=== PATIENT | female | born 1980 | race Caucasian/White ===

== ENCOUNTER → 2017-03-29 | Outpatient (CLI) | payer OTHER ==
[~2017-03-29] MED LIST: PRENTAB26 PO
== END | disposition home or self-care (01) ==
LOC: C.PAPS 15:04
PROVIDERS: ATTEND Obstetrics & Gynecology
DX: Z12.4 Encounter for screening for malignant neoplasm of cervix (principal)

== ENCOUNTER 2023-03-27 12:23 | Observation (INO) ==
--- OUTSIDE RECORDS SUMMARY | 2023-03-27 12:29 | External Medical Summary | Continuity of Care Document ---
Author Name Unknown Organization [address] Address [address] [place] [phone] Care Team Providers Care Grizzlyman Name Role Phone Lito Colon Primary Care Physician [phone] Encounter [facility] [id number] Date(s): 11/12/22 - 11/12/[address] [facility] [address] [facility], [address] [place] [address] [phone] Encounter Diagnosis Ventral hernia(Discharge Diagnosis) - 11/12/22 GERD (gastroesophageal reflux disease)(Discharge Diagnosis) - 11/12/22 Discharge Disposition: Home or Self Care Attending Physician: MD Colon Jesse Referring Physician: MD Colon Jesse Allergies, Adverse Reactions, Alerts Substance Reaction Severity Status PCN (penicillin) fever itchy joint swelling Active Medications predniSONE 20 mg oral tablet Start: 11/12/22 14:38:00 EDT, 2 tab, PO, Daily, Disp# 10 tab, Pharmacy: [id number] Start Date: 11/12/22 Stop Date: 11/17/22 Status: Ordered Protonix 40 mg oral delayed release tablet Start: 11/12/22 14:50:00 EDT, 1 tab, PO, Daily, Disp# 30 tab, Pharmacy: [id number] Start Date: 11/12/22 Status: Ordered Mental Status 11/12/22 Barriers to Learning one year None evide nt Mandatory Health Literacy Documentation Yes Health Literacy Communication Barriers N ever Primary Language [place] Problem List Condition Confirmation Course Effective Dates Status Health St atus Informant GERD (gastroesophageal reflux disease) Confirmed Active Ventral hernia Confirmed Active Tobacco user Confirmed Active Diagnosis Diagnosis Type Effective Dates Health Status Cl inical Service Informant Ventral hernia Discharge Diagnosis 11/12/22 GERD (gastroesophagea l reflux disease) Discharge Diagnosis 11/12/22 Vital Signs Most recent to oldest [Reference Range]: 1 Patient Weight 83.5 kg (11/12/22 1:57 PM) Heart Rate 59 bpm (11/12/22 1:57 PM) Respiratory Rate 18 br/min (11/12/22 1:57 PM) Blood Pressure 122/85mmHg (11/12/22 1:57 PM) Social History Social History Type Response Smoking Status Current some day hea vy smoker Sex Female Patient Care team information Care Team Personnel Name: MD Colon Jesse Position: Physician Member Role: Primary Care Provider Address: Address: [address] [facility] [address] [place] [address], [place] [address]
[2023-03-27] MEDS ORDERED: ONDANSETRON INJ 2 MG/ML 2 ML VIAL IV PRN ×2 (12:32→15:59)
[2023-03-27] MEDS ORDERED: ONDANSETRON INJ 2 MG/ML 2 ML VIAL IV STA (12:33)
[2023-03-27 12:53] LABS: Basophils # (auto) 0.07 K/uL (0.00-0.20); Basophils % (auto) 1.1 %; Eosinophils % (auto) 4.8 %; Hematocrit (blood only) 42.4 % (37.0-47.0); Hemoglobin 14.1 g/dl (12.0-16.0); Immature Granulocytes # (auto) 0.02 K/uL (0.01-0.20); Immature Granulocytes % (auto) 0.3 %; Lymphocytes % (auto) 38.5 %; Mean Corpuscular Hgb Conc 33.3 g/dL (32.0-36.0); Mean Corpuscular Volume 87.2 fL (80.0-100.0); Mean Platelet Volume 9.3 fL (9.4-12.4); Monocytes % (auto) 11.2 %; Neutrophils # (auto) 2.74 K/uL (1.40-6.50); Neutrophils % (auto) 44.1 %; Platelet Count 306 K/uL (130-400); RDW Coefficient of Variation 13.5 % (11.5-14.5); RDW Standard Deviation 43.4 fL (36.4-46.3); Red Blood Count 4.86 M/uL (4.20-5.40); White Blood Count 6.23 K/ul (4.8-10.8)
[2023-03-27] MEDS ORDERED: MoRPHine SULFATE 4 MG/ML 1 ML CARP\\VIAL IV STA ×2 (13:03→13:48)
[2023-03-27] MEDS ORDERED: SODIUM CHLORIDE 0.9% 1,000 ML IV ONE (13:03)
--- NOTE | 2023-03-27 13:08 | Emergency Department Note ---
History of Present Illness General Chief complaint: Abdominal Pain Stated complaint: HERNIA Time Seen by Provider: 03/27/23 12:52 History of Present Illness Maximum Pain Intensity: 8 42-year-old female who presents to the emergency department for evaluation of abdominal pain and vomiting. Patient reports history of a ventral hernia and states for the last 2 weeks she has been having progressive pain in the epigastric region. She states her pain got significantly worse today and developed vomiting prompting evaluation. She notes previous episodes similar to this in the past but this feels worse. She denies fever/chills, chest pain, shortness of breath, diarrhea/constipation, urinary symptoms. No hematochezia, melena. She states that she is following up with the surgeon in [place] on April 12 to discuss treatment options. She has not taken anything for her symptoms. Notes an allergy to penicillins. Home Medications Medication Instructions Recorded Confirmed Type pantoprazole 40 mg tablet,delayed 40 mg PO DAILY 03/27/23 03/27/23 History release Allergies Allergy/AdvReac Type Severity Reaction Status Date / Time meperidine Allergy Unknown Verified 02/04/10 08:13 Penicillins Allergy Unknown Verified 01/07/22 09:16 Past Med/Surg History Medical History GERD (gastroesophageal reflux disease) Social History Smoking Status: Never smoker Preferred Language: Belizean Feels Safe at Home: Yes Physical Exam Vital Signs Vital Signs - 24 hr 03/27/23 12:29 03/27/23 13:09 03/27/23 13:21 Temperature 36.8 C Temperature Source Temporal Artery Scan Pulse Rate 68 63 Pulse Rate [Apical] 71 Pulse Rhythm [Apical] Regular Pulse Strength [Apical] Normal Respiratory Rate 18 18 Respiratory Effort / Characteristics Non-Labored Spontaneous Non-Labored Spontaneous Respiratory Depth Normal Normal Blood Pressure 142/85 H Blood Pressure [Left Arm] 130/76 Blood Pressure Mean 104 Blood Pressure Mean [Left Arm] 94 Blood Pressure Position Sitting Pulse Oximetry 100 100 Oxygen Delivery Method Room Air Room Air Sepsis Recent Fever Within 48 Hours No Sepsis New/Unexplained Change in Mental Status No Sepsis Action Taken by Nursing No Action Required 03/27/23 13:59 03/27/23 16:08 Temperature 36.6 C Temperature Source Axillary Pulse Rate Pulse Rate [Apical] 61 58 L Pulse Rhythm [Apical] Pulse Strength [Apical] Respiratory Rate 24 16 Respiratory Effort / Characteristics Respiratory Depth Blood Pressure Blood Pressure [Left Arm] 130/76 119/83 Blood Pressure Mean Blood Pressure Mean [Left Arm] 94 95 Blood Pressure Position Pulse Oximetry 100 100 Oxygen Delivery Method Room Air Room Air Sepsis Recent Fever Within 48 Hours Sepsis New/Unexplained Change in Mental Status Sepsis Action Taken by Nursing Constitutional: alert and oriented x3. Uncomfortable appearing but nontoxic HEENT: normocephalic, atraumatic. normal conjunctiva.PERRLA. EOM's grossly intact. TMs pearly langford without effusion. Pharynx pink without exudate. Tonsils nonenlarged. Mucus membranes moist Neck: neck is supple, nontender. Respiratory: lungs are clear to auscultation without wheezes, rhonchi, or rales bilaterally. equal chest rise. normal respiratory effort, no accessory muscle use. Cardiovascular: normal heart sounds without murmur. regular rate and rhythm. GI: abdomen is soft. Mass in epigastric region, tender to palpation. Abdomen nondistended. No rebound tenderness or guarding. No CVA tenderness Psych:appropriate mood and affect. Course Administered Medications Discontinued Medications Hydromorphone HCl (Hydromorphone Inj 0.5 Mg/0.5 Ml Syr) 0.5 mg IV NOW STA Stop: 03/27/23 14:40 Last Admin: 03/27/23 14:46 Dose: 0.5 mg Documented By: BILL Sodium Chloride (Nss) 1,000 mls @ 999 mls/hr IV .Q1H1M ONE Stop: 03/27/23 14:03 Last Infusion: 03/27/23 14:00 Dose: Infused Documented By: Admin: 03/27/23 13:08 Dose: 999 mls/hr Documented By: BILL Ioversol (Optiray 320 500ml) 87 ml IV ONCE ONE Stop: 03/27/23 14:13 Last Admin: 03/27/23 14:12 Dose: 87 ml Documented By: DIPTI Ketorolac Tromethamine (Ketorolac Tromethamine 15 Mg/Ml Vial) 15 mg IV NOW STA Stop: 03/27/23 13:50 Last Admin: 03/27/23 13:52 Dose: 15 mg Documented By: MMG Morphine Sulfate (Morphine Sulfate 4 Mg/Ml 1 Ml Carp\Vial) 4 mg IV NOW STA Stop: 03/27/23 13:04 Last Admin: 03/27/23 13:08 Dose: 4 mg Documented By: BILL Morphine Sulfate (Morphine Sulfate 4 Mg/Ml 1 Ml Carp\Vial) 4 mg IV NOW STA Stop: 03/27/23 13:49 Last Admin: 03/27/23 13:53 Dose: 4 mg Documented By: MMG Ondansetron HCl (Ondansetron Inj 2 Mg/Ml 2 Ml Vial) 4 mg IV NOW STA Stop: 03/27/23 12:34 Last Admin: 03/27/23 12:36 Dose: 4 mg Documented By: IRENA Medical Decision Making Differential Diagnosis Appendicitis, ovarian cyst, ovarian torsion, ectopic , TOA, PID, infections, diverticulitis, UTI, obstruction, mesenteric ischemia, aortic pathology, inflammatory bowel disease, renal colic, PUD, pancreatitis, biliary pathology, hernia, volvulus, constipation, as well as other pathologies. Laboratory Data Attestation: I reviewed the patient's lab results. 03/27/23 12:35 03/27/23 12:35 Lab Results 03/27/23 03/27/23 03/27/23 Range/Units 12:35 13:00 14:46 WBC 6.23 (4.8-10.8) K/ul RBC 4.86 (4.20-5.40) M/uL Hgb 14.1 (12.0-16.0) g/dl Hct 42.4 (37.0-47.0) % MCV 87.2 (80.0-100.0) fL MCH 29.0 (25.0-34.0) pg MCHC 33.3 (32.0-36.0) g/dL RDW Std Deviation 43.4 (36.4-46.3) fL RDW Coeff of Melony 13.5 (11.5-14.5) % Plt Count 306 (130-400) K/uL MPV 9.3 L (9.4-12.4) fL Immature Gran % (Auto) 0.3 % Neut % (Auto) 44.1 % Lymph % (Auto) 38.5 % [place] % (Auto) 11.2 % Eos % (Auto) 4.8 % Baso % (Auto) 1.1 % Neut # (Auto) 2.74 (1.40-6.50) K/uL Lymph # (Auto) 2.40 (1.20-3.40) K/uL [place] # (Auto) 0.70 H (0.11-0.59) K/uL Eos # (Auto) 0.30 (0.00-0.50) K/uL Baso # (Auto) 0.07 (0.00-0.20) K/uL Immature Gran # (Auto) 0.02 (0.01-0.20) K/uL Sodium 137 (136-145) mmol/L Potassium 3.3 L (3.5-5.1) mmol/L Chloride 105 (98-107) mmol/L Carbon Dioxide 21 (21-32) mmol/L Anion Gap 11 (3-11) BUN 14 (6-23) mg/dl Creatinine 0.95 (0.6-1.2) mg/dl Est Cr Clr Drug Dosing 77.7 ml/min Est GFR ( Amer) 86.8 ml/min Est GFR (Non-Af Amer) 74.9 ml/min BUN/Creatinine Ratio 14.7 (10-20) Glucose 117 H (70-99(Fasting)) mg/dl Lactate 2.3 H* 1.7 (0.4-2.0) mmol/L Calcium 9.5 (8.6-10.3) mg/dl Total Bilirubin 0.6 (0.2-1.0) mg/dl AST 15 (13-39) U/L ALT 9 (7-52) U/L Alkaline Phosphatase 63 (34-104) U/L Total Protein 7.6 (6.0-8.3) gm/dl Albumin 4.5 (3.4-5.0) gm/dl Globulin 3.1 (2.5-4.0) gm/dl Albumin/Globulin Ratio 1.5 (0.9-2) Lipase 20 (11-82) U/L HCG, Qual Negative (Negative) Urine Color Yellow Urine Appearance Clear (Clear) Urine pH 6.5 (4.5-7.5) Ur Specific [place] 1.020 (1.000-1.030) Urine Protein Negative (Negative) Urine Glucose (UA) Negative (Negative) Urine Ketones Trace H (Negative) Urine Blood Negative (Negative) Urine Nitrite Negative (Negative) Urine Bilirubin Negative (Negative) Urine Urobilinogen Negative (Negative) Ur Leukocyte Esterase Negative (Negative) Imaging Data Radiologist's Impression: Abdomen/Pelvis CT 03/27/23 12:53 CT abd pelvis IV con only CLINICAL HISTORY: abd hernia, pain/vomiting TECHNIQUE: Helical axial images of the abdomen and pelvis were obtained and displayed. Automated dose lowering techniques and/or adjustment according to patient size were utilized for this exam. This exam was performed with intravenous contrast. CT DOSE: 1047.91 mGy.cm COMPARISON: Comparison is made to CT abdomen pelvis 10/26/2022 FINDINGS: Lower chest: No acute abnormality. Liver: Unremarkable. No focal lesions are seen. Gallbladder and biliary tree: No calcified gallstones. Normal caliber wall. No intra- or extrahepatic biliary ductal dilation. Pancreas: Unremarkable, no focal lesions. Spleen: Unremarkable. Adrenals: Unremarkable. Kidneys and ureters: Unremarkable. Bladder: Unremarkable. Reproductive organs: Unremarkable. Bowel: The appendix is unremarkable. There is a loop of small bowel contained within a hernia with mild wall thickening, enhancement, and surrounding free fluid. No pneumatosis is seen. Lymph nodes Retroperitoneal: Unremarkable. Pelvic: Unremarkable. Mesenteric: Unremarkable. Peritoneum: Trace free fluid in the pelvis is likely physiologic. Vessels: Unremarkable. Abdominal wall: A supraumbilical hernia is seen containing a loop of bowel which appears mildly distended and with wall thickening. Bones: Degenerative changes in the visualized spine. IMPRESSION: Supraumbilical hernia is seen. In the interval, the contained loop of bowel appears mildly distended, with a thickened enhancing wall and small surrounding fluid. Findings are concerning for incarcerated hernia with early ischemic changes. No CT evidence of bowel infarct. ACT 112: Negative or not required by law. Electronically signed by: Taye Moreno M.D. 03/27/2023 3:10 PM MDM Narrative 42-year-old female with past medical history significant for ventral hernia who presents to the emergency department for evaluation of epigastric abdominal pain and vomiting. Reviewed pertinent visits and past medical history performed. Vital signs in ED stable, afebrile. Patient was seen and evaluated as above. IV access was established and labs and imaging were obtained. CBC without leukocytosis or acute anemia. CMP without significant electrolyte abnormalities. Potassium 3.3. Renal function within normal limits. LFTs and lipase unremarkable. test negative. Lactate initially 2.3. 2-hour repeat lactate 1.7 following hydration. Urinalysis without evidence of infection or blood. On exam, patient is uncomfortable appearing but nontoxic. She is significantly tender in the epigastric region with palpable hernia. No surgical abdomen. Patient was medicated with IV morphine, Zofran and 1 L of fluids. She was reassessed on multiple occasions throughout ED stay. She did require multiple rounds of pain medication including an additional 4 mg of morphine and Toradol as well as 0.5 mg IV Dilaudid. Her pain did improve with this. CT of the abdomen/pelvis was performed and demonstrates supraumbilical hernia with mildly distended containing loop of bowel with thickened enhancing wall and surrounding fluid. Findings concerning for an incarcerated hernia with early ischemic changes. Case was discussed with on-call general surgery, Dr. Velez, who reviewed patient's workup and imaging and recommended emergent surgical intervention. These recommendations were relayed to the patient who verbalized understanding. Please see Dr. Velez's note for details regarding surgical and postoperative plan. Patient ric to OR with general surgery in stable condition. Case was discussed with ED attending, Dr. Zhang who agrees with workup and treatment plan Impression & Plan Incarcerated ventral hernia Discharge Plan Visit Data Chief Complaint: Abdominal Pain Stated Complaint: HERNIA ED Provider: Km Zhang ED Midlevel Provider: Elli Love Discharge Problem: Incarcerated ventral hernia Patient Disposition: Being Evaluated by Surgeon Discharge Instructions Interventions: ED Discharge Assessment Last Done: 03/27/23 16:20
[2023-03-27 13:24] LABS: Appearance Urine Clear (Clear); Bilirubin Urine Negative (Negative); Blood Urine Negative (Negative); Color Urine Yellow; Glucose Urine UA Negative (Negative); Ketones Urine Trace (Negative); Leukocyte Esterase Urine Negative (Negative); Nitrite Urine Negative (Negative); Protein Urine Negative (Negative); Urobilinogen Urine Negative (Negative); pH Urine 6.5 (4.5-7.5)
[2023-03-27 13:40] LABS: Albumin Level 4.5 gm/dl (3.4-5.0); Bilirubin,Total 0.6 mg/dl (0.2-1.0); Calcium 9.5 mg/dl (8.6-10.3); Potassium 3.3 mmol/L (3.5-5.1)
[2023-03-27 13:44] LABS: Pregnancy Test, Serum Negative (Negative)
[2023-03-27 13:46] LABS: Albumin Globulin Ratio 1.5 (0.9-2); BUN Creatinine Ratio 14.7 (10-20); Creatinine Clr Calc Pharmacy 77.7 ml/min; Est GFR (African American) 86.8 ml/min; Est GFR (Non-African American) 74.9 ml/min; Globulin 3.1 gm/dl (2.5-4.0); Total Protein 7.6 gm/dl (6.0-8.3)
[2023-03-27] MEDS ORDERED: KETOROLAC TROMETHAMINE 15 MG/ML VIAL IV STA (13:49)
[2023-03-27] MEDS ORDERED: OPTIRAY 320 500ml IV ONE (14:12)
[2023-03-27] MEDS ORDERED: HYDROmorphone INJ 0.5 MG/0.5 ML SYR IV STA (14:39)
--- NOTE | 2023-03-27 15:12 | CT Scan Report ---
CT abd pelvis IV con only CLINICAL HISTORY: abd hernia, pain/vomiting TECHNIQUE: Helical axial images of the abdomen and pelvis were obtained and displayed. Automated dose lowering techniques and/or adjustment according to patient size were utilized for this exam. This e xam was performed with intravenous contrast. CT DOSE: 1047.91 mGy.cm COMPARISON: Comparison is made to CT abdomen pelvis 10/26/2022 FINDINGS: Lower chest: No acute abnormality. Liver: Unremarkable. No focal lesions are seen. Gallbladder and biliary tree: No calcified gallstones. Normal caliber wall. No intra- or extrahepatic biliary ductal dilation. Pancreas: Unremarkable, no focal lesions. Spleen: Unremarkable. Adrenals: Unremarkable. Kidneys and ureters: Unremarkable. Bladder: Unremarkable. Reproductive organs: Unremarkable. Bowel: The appendix is unremarkable. There is a loop of small bowel contained within a hernia with mi ld wall thickening, enhancement, and surrounding free fluid. No pneumatosis is seen. Lymph nodes Retroperitoneal: Unremarkable. Pelvic: Unremarkable. Mesenteric: Unremarkable. Peritoneum: Trace free fluid in the pelvis is likely physiologic. Vessels: Unremarkable. Abdominal wall: A supraumbilical hernia is seen containing a loop of bowel which appears mildly diste nded and with wall thickening. Bones: Degenerative changes in the visualized spine. IMPRESSION: Supraumbilical hernia is seen. In the interval, the contained loop of bowel appears mildly distended, with a thickened enhancing wall and small surrounding fluid. Findings are concerning for incarcerate d hernia with early ischemic changes. No CT evidence of bowel infarct. ACT 112: Negative or not required by law. Electronically signed by: Taye Moreno M.D. 03/27/2023 3:10 PM
[2023-03-27] MEDS ORDERED: ACETAMINOPHEN 1000 MG/100 ML IV IV ONE (15:56)
[2023-03-27] MEDS ORDERED: ATROPINE SULFATE 0.1 MG/ML 10ML SYR IV PRN (15:59)
[2023-03-27] MEDS ORDERED: PROMETHAZINE HCL 6.25 MG in SODIUM CHLORIDE 0.9% 50 ML IV PRN (15:59)
[2023-03-27] MEDS ORDERED: fentaNYL citrate PF 100 MCG/2 ML VIAL IV PRN (15:59)
[2023-03-27] MEDS ORDERED: ePHEDrine sulfate 50 MG/ML AMP IV PRN (15:59)
[2023-03-27] MEDS ORDERED: MIDAZOLAM HCL 1 MG/ML 2ML VIAL ONE (16:04)
[2023-03-27] MEDS ORDERED: SUCCINYLCHOLINE CHLORIDE 20 MG/ML 10 ML VIAL IV ONE (16:04)
[2023-03-27] MEDS ORDERED: ROCURONIUM BROMIDE 10 MG/ML 5 ML VIAL IV ONE (16:04)
[2023-03-27] MEDS ORDERED: ONDANSETRON INJ 2 MG/ML 2 ML VIAL ONE ×2 (16:04→18:30)
[2023-03-27] MEDS ORDERED: LIDOCAINE 2% 2 ML VIAL/AMP(20MG/ML) INFIL ONE (16:04)
[2023-03-27] MEDS ORDERED: PROPOFOL IV EMULSION 10 MG/ML 20 ML VIAL IV ONE (16:04)
[2023-03-27] MEDS ORDERED: fentaNYL citrate PF 100 MCG/2 ML VIAL ONE (16:04)
[2023-03-27] MEDS ORDERED: SUGAMMADEX SODIUM 200 MG/2 ML VIAL IV ONE (16:04)
[2023-03-27] MEDS ORDERED: DEXAMETHASONE SOD INJ 4 MG/ML VIAL ONE (16:04)
--- NOTE | 2023-03-27 16:19 | Anesthesiology Consultation ---
Date of Service March 27, 2023 Assessment & Plan Chart Review Chart Review: Acceptable Risk for Surgery and Patient NOT seen in Pre Admission Testing Consults Requested none ASA ASA2E Proposed Anesthesia Anesthesia Type: General Risk / Benefits Reviewed With: PT / POA / Parent / Guardian, Accepts Plan and Informed Consent Obtained History Surgery Operation Date: 03/27/23 16:30 Proposed Procedures p Ventral Hernia Repair - Tolu Velez, Height/Weight Height: 5 ft 2 in Weight: 81.2 kg Allergies Allergy/AdvReac Type Severity Reaction Status Date / Time meperidine Allergy Unknown Verified 02/04/10 08:13 Penicillins Allergy Unknown Verified 01/07/22 09:16 Medications Home Medications Medication Instructions Recorded Confirmed Last Taken pantoprazole 40 mg tablet,delayed 40 mg PO DAILY 03/27/23 03/27/23 03/27/23 release NPO Date Last Intake of Fluids: 03/27/23 Time Last Intake of Fluids: 10:00 Date Last Intake of Solids: 03/26/23 Time Last Intake of Solids: 20:00 Past Medical History Medical History GERD (gastroesophageal reflux disease) Exercise / Class Metabolic Activity II 4-5 Yardwork/Stairs/Walk up hill Past Anesthesia History No Hx of Anesthesia Complications and No Family Hx of Anesthesia Complications History of PONV No Hx of PONV and No Hx of Motion Sickness Social History Smoking Status: Never smoker Review of Systems ROS Unobtainable: All systems reviewed & are unremarkable except as noted in HPI & below Physical Exam Vital Signs Last Vital Signs Temp 36.6 C 03/27/23 16:08 Pulse 58 L 03/27/23 16:08 Resp 16 03/27/23 16:08 BP 119/83 03/27/23 16:08 Pulse Ox 100 03/27/23 16:08 O2 Del Method Room Air 03/27/23 16:08 ENMT Mouth: no TMJ abnormality Thyromental Distance: > or= 3.5 Finger Breadths Mallampati Class: II Neck normal visual inspection and trachea midline; neck extension not limited Respiratory normal respiratory effort Auscultation: lungs clear to auscultation bilaterally Cardiovascular Rate/Rhythm: regular rate and regular rhythm Heart Sounds: no murmur Musculoskeletal Spine: normal cervical ROM Extremities: full ROM of extremities Neurologic moves all extremities Psychiatric Orientation: alert and oriented x 3 Testing Laboratory Results 03/27/23 12:35 03/27/23 12:35 Urine Color Yellow 03/27/23 13:00 Urine Appearance Clear (Clear) 03/27/23 13:00 Urine pH 6.5 (4.5-7.5) 03/27/23 13:00 Ur Specific [place] 1.020 (1.000-1.030) 03/27/23 13:00 Urine Protein Negative (Negative) 03/27/23 13:00 Urine Glucose (UA) Negative (Negative) 03/27/23 13:00 Urine Ketones Trace (Negative) H 03/27/23 13:00 Urine Nitrite Negative (Negative) 03/27/23 13:00 Ur Leukocyte Esterase Negative (Negative) 03/27/23 13:00 Electrocardiogram Date: 10/25/22 Findings: + NSR @
--- NOTE | 2023-03-27 16:43 | History & Physical Report ---
Date of Service March 27, 2023 History of Present Illness Chief Complaint: Abdominal pain Primary Care Provider: Lito Colon MD This is a 42-year-old female presented to the ER with progressive abdominal pain over the last 2 days. Got worse today. It is sharp in nature and located in the upper abdomen. There is no radiation of pain. It is worse when palpated. There are no alleviating factors. She denies any previous abdominal surgeries other than C-sections. She had some nausea and vomiting associated with this. She denies any fevers or chills. She denies any constipation or diarrhea. Allergies Allergy/AdvReac Type Severity Reaction Status Date / Time meperidine Allergy Unknown Verified 02/04/10 08:13 Penicillins Allergy Unknown Verified 01/07/22 09:16 Home Medications Medication Instructions Recorded Confirmed Type pantoprazole 40 mg tablet,delayed 40 mg PO DAILY 03/27/23 03/27/23 History release Past Med/Surg History Medical History GERD (gastroesophageal reflux disease) Social History Smoking Status: Never smoker Preferred Language: Albanian Feels Safe at Home: Yes Review of Systems Constitutional: no fever and no chills Eyes: no blind spots and no worsening vision Ear, Nose, Mouth, Throat: no ear pain and no hearing loss Respiratory: no cough and no dyspnea Cardiovascular: no chest pain and no dyspnea on exertion Gastrointestinal: + abdominal pain, + nausea and + vomitin g; no change in stools and no constipation Genitourinary: no dysuria and no difficulty urinating Musculoskeletal: no back pain and no neck pain Integumentary: no acne and no dry skin Neurologic: no headache(s) and no confusion Psychiatric: no behavioral changes and no depression Hematologic / Lymphatic: no easy bleeding and no easy bruising Physical Exam Constitutional: WD/WN, vitals as above Eyes: PERRL, conjunctivae normal, anicteric sclerae ENMT: external ear and nose normal, oropharynx normal Neck: trachea midline, no thyromegaly Respiratory: normal respiratory effort, lungs clear to auscultation Cardiovascular: RRR, no murmur, no edema Gastrointestinal (Abdomen): Inspection/Auscultation: abdomen normal to inspection; abdomen not distended Percussion/Palpation: + abdomen tender (Supraumbilically), abdomen soft and + hernia (Incarcerated ventral hernia above the umbilicus); no guarding and abdomen not rigid Musculoskeletal: no cyanosis or clubbing, extremities motor strength 5/5 Skin: no rashes, warm and dry Neurologic: PERRL, EOMI, accommodation nl, no face palsy, no dysarthria Psychiatric: A+Ox3, euthymic affect Results & Data Results & Data Vital Signs (Past 12 Hours) Vital Signs Temp Pulse Pulse Resp BP BP Pulse Ox 03/27/23 16:08 36.6 C 58 L 16 119/83 100 03/27/23 13:59 61 24 130/76 100 03/27/23 13:21 63 03/27/23 13:09 71 18 130/76 100 03/27/23 12:29 36.8 C 68 18 142/85 H 100 O2 Del Method 03/27/23 16:08 Room Air 03/27/23 13:59 Room Air 03/27/23 13:21 03/27/23 13:09 Room Air 03/27/23 12:29 Room Air PG Care Time/CCT Total # of Minutes Spent Total Time Spent with Patient: Total time spent is greater than 50% in coordination of care (as documented) at patient's floor/unit and/or counseling patient: Coding Level of Care Code 95960 INT INP/OBS CARE 3/75MIN
[2023-03-27] MEDS ORDERED: BUPIVACAINE 0.5 % 5 MG/1 ML MPF 30ML VIAL ONE (16:46)
[2023-03-27] MEDS ORDERED: ceFAZolin 2000MG 2,000 MG/15 ML SYR IV ONE (17:01)
--- NOTE | 2023-03-27 17:58 | Post Operative Brief Note ---
PG Immediate Post Op with CF Date of Surgery March 27, 2023 Pre & Post Diagnosis Operation Date: 03/27/23 16:30 Pre-Op Diagnosis: Incarcerated Ventral Hernia, small bowel obstruction Post-Op Diagnosis: Incarcerated Ventral Hernia, small bowel obstruction I identified the patient and participated in the time-out.: Yes Procedure Operation Date: 03/27/23 16:30 Actual Procedures p Open incarcerated ventral Hernia Repair(Not Applicable) - Tolu Velez DO Surgeon Tolu Velez DO Paint Stockman None Estimated Blood Loss 10 Findings See Below 3.3 cm ventral hernia with incarcerated small bowel and omentum, viable small bowel Specimens Specimen Description: A. Ventral Hernia Sac Anesthesia Type General Complications none Disposition Disposition: Recovery Room
--- NOTE | 2023-03-27 18:02 | Operative Report ---
PG Post Operative Report Pre & Post Diagnosis Operation Date: 03/27/23 16:30 Pre-Op Diagnosis: Incarcerated Ventral Hernia, small bowel obstruction Post-Op Diagnosis: Incarcerated Ventral Hernia, small bowel obstruction I identified the patient and participated in the time-out.: Yes Procedure Operation Date: 03/27/23 16:30 Actual Procedures p Open incarcerated ventral Hernia Repair(Not Applicable) - Tolu Velez DO Surgeon Tolu Velez DO [employer] None Estimated Blood Loss 10 Findings See Below 3.3 cm ventral hernia with incarcerated small bowel and omentum, viable small bowel Specimens Hernia sac to pathology Drains None Anesthesia Type General Complications none Disposition Disposition: Recovery Room Indications 42-year-old female with an incarcerated ventral hernia with bowel obstruction and concern for bowel ischemia Description of Procedure The patient was brought to the OR and placed in the supine position with both arms abducted. At this time she underwent general endotracheal anesthesia without any problems. She was given appropriate pre-operative antibiotics. Her abdomen was prepped and draped in the usual sterile fashion. Timeout was called. The procedure was verified as Open incarcerated ventral hernia repair, possible bowel resection, possible mesh. Surgical, anesthesia and nursing teams agreed and the procedure was begun. After injection of 0.25% Marcaine with epinephrine, a vertical midline supraumbilical incision was made using a #15 blade scalpel that was directly over the palpable incarcerated hernia. This was carried down to the fascia using electrocautery. The hernia sac was then dissected free of the surrounding subcutaneous tissue and fascia using blunt and sharp dissection. The hernia sac was opened and this contained viable small intestine as well as omentum. The defect was enlarged in order to reduce the contents. The hernia sac was removed. At this point the defect was apparent and measured 3.3cm. The fascia was then cleared of any tissue so that healthy tissue could be used for repair. The defect was then closed using figure of 8 1-PDS suture. The wound was then irrigated until clear. Hemostasis was achieved using electrocautery. Hemostasis was complete. The subcutaneous tissue was then reapproximated using 3-0 Vicryl in order to minimize space. 3-0 Vicryl was used to close the deep dermal layer and 4-0 Monocryl was used to close the skin in a running subcuticular fashion. Sterile dressing was applied. All needle and sponge counts were correct x 2. At this point the patient was awakened from anesthesia, extubated and transported to PACU in stable condition. I attest to the content of the Intraoperative Record and any orders documented therein. Any exceptions are noted below.
--- NOTE | 2023-03-27 18:28 | Anesthesiology Progress Note ---
Date of Service March 27, 2023 Anesthesia Post Procedure Vital Signs Vital Signs: Temp Pulse Pulse Resp BP BP Pulse Ox 03/27/23 18:20 88 20 122/68 98 03/27/23 18:10 79 16 126/72 98 03/27/23 18:03 36.1 C L 93 H 15 121/75 96 03/27/23 16:08 36.6 C 58 L 16 119/83 100 03/27/23 13:59 61 24 130/76 100 03/27/23 13:21 63 03/27/23 13:09 71 18 130/76 100 03/27/23 12:29 36.8 C 68 18 142/85 H 100 O2 Del Method O2 Flow Rate 03/27/23 18:20 Oxymask 4 03/27/23 18:10 Oxymask 4 03/27/23 18:03 Oxymask 6 03/27/23 16:08 Room Air 03/27/23 13:59 Room Air 03/27/23 13:21 03/27/23 13:09 Room Air 03/27/23 12:29 Room Air Pain Intensity Abdomen: Pain Intensity: 8 Transfer of Care Handoff Completed per policy Notes Mental Status: alert / awake / arousable Patient Amnestic to Procedure: Yes Nausea / Vomiting: adequately controlled Pain: adequately controlled Airway Patency, RR, SpO2: stable & adequate BP & HR: stable & adequate Hydration State: stable & adequate Anesthetic Complications: no major complications apparent and Pt Satisfied with anesthetic care
[2023-03-27] MEDS ORDERED: MoRPHine SULFATE 4 MG/ML 1 ML CARP\\VIAL IV PRN (19:30)
[2023-03-27] MEDS ORDERED: oxyCODONE HCL IR 5 MG TAB (IMMEDIATE RELEASE) PO PRN ×2 (19:30)
[2023-03-27] MEDS: LACTATED RINGER'S 1,000 ML IV SCH (19:42)
[2023-03-27] MEDS: ACETAMINOPHEN 325 MG TAB PO PRN (20:33)
[2023-03-27] MEDS: MoRPHine SULFATE 2 MG/ML CARP IV PRN (22:34)
[2023-03-27] MEDS: ONDANSETRON INJ 2 MG/ML 2 ML VIAL IV PRN (22:34)
[2023-03-28] MEDS: LACTATED RINGER'S 1,000 ML IV SCH (04:02)
[2023-03-28] MEDS: ACETAMINOPHEN 325 MG TAB PO PRN (04:45)
[2023-03-28] MEDS: POTASSIUM CHLORIDE / WTR 10 MEQ/100 ML PLCT IV SCH ×3 (07:35→09:37)
[2023-03-28] MEDS: ONDANSETRON INJ 2 MG/ML 2 ML VIAL IV PRN (07:39)
[2023-03-28] MEDS: MoRPHine SULFATE 2 MG/ML CARP IV PRN (07:39)
[2023-03-28 07:47] LABS: Hematocrit (blood only) 33.6 % (37.0-47.0); Hemoglobin 11.6 g/dl (12.0-16.0); Immature Granulocytes # (auto) 0.03 K/uL (0.01-0.20); Immature Granulocytes % (auto) 0.5 %; Lymphocytes # (auto) 0.97 K/uL (1.20-3.40); Lymphocytes % (auto) 14.6 %; Mean Corpuscular Hemoglobin 29.4 pg (25.0-34.0); Mean Corpuscular Hgb Conc 34.5 g/dL (32.0-36.0); Mean Corpuscular Volume 85.3 fL (80.0-100.0); Mean Platelet Volume 9.5 fL (9.4-12.4); Monocytes # (auto) 0.54 K/uL (0.11-0.59); Monocytes % (auto) 8.1 %; Neutrophils % (auto) 76.8 %; Platelet Count 224 K/uL (130-400); RDW Coefficient of Variation 13.5 % (11.5-14.5); RDW Standard Deviation 42.5 fL (36.4-46.3); Red Blood Count 3.94 M/uL (4.20-5.40); White Blood Count 6.64 K/ul (4.8-10.8)
[2023-03-28 08:14] LABS: BUN Creatinine Ratio 13.7 (10-20); Calcium 8.5 mg/dl (8.6-10.3); Creatinine Clr Calc Pharmacy 101.1 ml/min; Est GFR (African American) 119.4 ml/min; Potassium 3.8 mmol/L (3.5-5.1)
--- NOTE | 2023-03-28 08:39 | Surgery Progress Note ---
Date of Service March 28, 2023 Assessment & Plan (1) Incarcerated ventral hernia: Plan: POD 1 Patient with expected post surgical pain , tolerable with medication Denies n/v , fever, chills, sob , cp advanced to full liquids this AM and reg for lunch midline surgical incision covered with steris, gauze, tegaderm WBC, wnl Abd binder as needed for comfort May be d/c if tolerating lunch and pain controlled (2) Hypokalemia: Plan: ordered 3 bags 10MEq repletion AM labs drawn after start of K+ Admission and Anticipated Discharge Date Admission Date: March 27, 2023 Supervising Physician Co-Signing Physician Notes I personally saw and evaluated the patient with Franklyn BURGOS and agree with the assessment and plan 42 yo female POD#1 open repair of incarcerated ventral hernia Advance diet as tolerated Dressing is intact She can be discharged if she tolerates lunch Will have her follow up with me in 2 weeks Subjective Pt tolerating clears Denies N/V, fever , chills, SOB, CP Abdominal pain 07/14 Review of Systems Constitutional: no fever and no chills Respiratory: no dyspnea Cardiovascular: no chest pain Gastrointestinal: + abdominal pain; no nausea and no vomit ing Musculoskeletal: no muscle weakness Neurologic: no confusion and no memory loss Physical Exam Physical Exam: alert , oriented, pleasant Constitutional: well developed, cooperative and comfortable; no acute distress ENMT: external ear and nose normal, oropharynx normal Neck: trachea midline, no thyromegaly Respiratory: normal respiratory effort and able to speak in complete sentences; no respiratory distress Cardiovascular: Rate/Rhythm: + bradycardic (53) Gastrointestinal (Abdomen): Inspection/Auscultation: + abdominal surgical incision; abdomen not distended Percussion/Palpation: + abdomen tender and abdomen soft; no guarding midline surgical incision covered with steri strips, gauze and tegaderm Musculoskeletal: no cyanosis or clubbing, extremities motor strength 5/5 Skin: no rashes, warm and dry Neurologic: awake; not confused Psychiatric: A+Ox3, euthymic affect Results & Data Vital Signs (Past 12 Hours) Vital Signs Temp Pulse Resp BP Pulse Ox O2 Del Method 03/28/23 07:55 97.9 F 53 L 18 115/72 97 Room Air 03/28/23 04:04 98.1 F 66 18 113/73 96 Room Air 03/27/23 22:31 98.1 F 63 18 138/88 99 Room Air 03/27/23 21:46 98.1 F 61 16 117/76 98 Room Air Results Complete Blood Count Results: RBC 3.94 M/uL (4.20-5.40) L 03/28/23 WBC 6.64 K/ul (4.8-10.8) 03/28/23 Hgb 11.6 g/dl (12.0-16.0) L 03/28/23 Hct 33.6 % (37.0-47.0) L 03/28/23 Plt Count 224 K/uL (130-400) 03/28/23 Results BMP Results: Sodium 137 mmol/L (136-145) 03/28/23 Potassium 3.8 mmol/L (3.5-5.1) 03/28/23 Chloride 109 mmol/L (98-107) H 03/28/23 Carbon Dioxide 22 mmol/L (21-32) 03/28/23 Anion Gap 6 (3-11) 03/28/23 BUN 10 mg/dl (6-23) 03/28/23 Creatinine 0.73 mg/dl (0.6-1.2) 03/28/23 Glucose 102 mg/dl (70-99(Fasting)) H 03/28/23 PG Care Time/CCT Total # of Minutes Spent Total Time Spent with Patient: Total time spent is greater than 50% in coordination of care (as documented) at patient's floor/unit and/or counseling patient: Coding Level of Care Code 09980 SUB INP/OBS CARE 03/31MIN Diagnoses Incarcerated ventral hernia K43.6 Hypokalemia E87.6
--- NOTE | 2023-03-28 09:21 | Discharge Summary ---
Date of Service March 28, 2023 Admission HPI Per Admitting Provider This is a 42-year-old female presented to the ER with progressive abdominal pain over the last 2 days. Got worse today. It is sharp in nature and located in the upper abdomen. There is no radiation of pain. It is worse when palpated. There are no alleviating factors. She denies any previous abdominal surgeries other than C-sections. She had some nausea and vomiting associated with this. She denies any fevers or chills. She denies any constipation or diarrhea. Principal Diagnosis incarcerated ventral hernia Discharge Exam alert , oriented, pleasant Constitutional well developed, cooperative and comfortable; no acute distress ENMT external ear and nose normal, oropharynx normal Neck trachea midline, no thyromegaly Respiratory normal respiratory effort and able to speak in complete sentences; no respiratory distress Cardiovascular Rate/Rhythm: + bradycardic (53) Gastrointestinal (Abdomen) Inspection/Auscultation: + abdominal surgical incision; abdomen not distended Percussion/Palpation: + abdomen tender and abdomen soft; no guarding Musculoskeletal no cyanosis or clubbing, extremities motor strength 5/5 Skin no rashes, warm and dry Neurologic awake; not confused Psychiatric A+Ox3, euthymic affect Discharge Data Allergies Allergy/AdvReac Type Severity Reaction Status Date / Time meperidine Allergy Unknown Verified 02/04/10 08:13 Penicillins Allergy Unknown Verified 01/07/22 09:16 Consultations 03/27/23 15:52 Consult General Surgery Routine Procedures Performed Operation Date: 03/27/23 16:30 Actual Procedures p Open Ventral Hernia Repair(Not Applicable) - Tolu Velez, Ordered Studies 03/27/23 12:53 CT abd pelvis IV con only [place], [place] [phone] CT Scan Report Patient: FATOU MARINA Admit Date: 03/27/23 MR#: [id number] Address1: [address] Acct ID:[id number] Address2: Date: 1980 [facility] Zip: [place] [address] Age: 42 Location: ED Sex: F Room/Bed: Att Phy: Diagnosis: HERNIA - VOMITIG Tamanna Phy: Lito Colon MD Service Date: 03/27/23 [facility] Phy: Interpreting Phy: [facility] Phy: Ordering Phy: Elli Love PA-C cc: ~ CT abd pelvis IV con only CLINICAL HISTORY: abd hernia, pain/vomiting TECHNIQUE: Helical axial images of the abdomen and pelvis were obtained and displayed. Automated dose lowering techniques and/or adjustment according to patient size were utilized for this exam. This exam was performed with intravenous contrast. CT DOSE: 1047.91 mGy.cm COMPARISON: Comparison is made to CT abdomen pelvis 10/26/2022 FINDINGS: Lower chest: No acute abnormality. Liver: Unremarkable. No focal lesions are seen. Gallbladder and biliary tree: No calcified gallstones. Normal caliber wall. No intra- or extrahepatic biliary ductal dilation. Pancreas: Unremarkable, no focal lesions. Spleen: Unremarkable. Adrenals: Unremarkable. Kidneys and ureters: Unremarkable. Bladder: Unremarkable. Reproductive organs: Unremarkable. Bowel: The appendix is unremarkable. There is a loop of small bowel contained within a hernia with mild wall thickening, enhancement, and surrounding free fluid. No pneumatosis is seen. Lymph nodes Retroperitoneal: Unremarkable. Pelvic: Unremarkable. Mesenteric: Unremarkable. Peritoneum: Trace free fluid in the pelvis is likely physiologic. Vessels: Unremarkable. Abdominal wall: A supraumbilical hernia is seen containing a loop of bowel which appears mildly distended and with wall thickening. Bones: Degenerative changes in the visualized spine. IMPRESSION: Supraumbilical hernia is seen. In the interval, the contained loop of bowel appears mildly distended, with a thickened enhancing wall and small surrounding fluid. Findings are concerning for incarcerated hernia with early ischemic changes. No CT evidence of bowel infarct. ACT 112: Negative or not required by law. Electronically signed by: Taye Moreno M.D. 03/27/2023 3:10 PM Dictated: 03/27/23 1455 Transcribed: 03/27/23 1455 Hospital Course (1) Incarcerated ventral hernia: Patient is a pleasant 42 yo female with no significant PMH that presented to the [facility] ER on 03/27/23 with C/O nausea, vomiting and increasing abdominal pain that has been progressively getting worse over the last 2 days. It is sharp in nature and located in the upper abdomen. There is no radiation of pain. It is worse when palpated. There are no alleviating factors. No history of any previous abdominal surgeries other than C-sections. A CT scan in the ER showed an incarcerated ventral hernia. The patient underwent an emergency Open Ventral Hernia Repair with Dr. Velez on 03/27/23. She was admitted to the hospital post operatively for observation and care. Her diet was advanced and she tolerated without n/v. Her vital signs remained stable and her WBC were within normal limits. She was hypokalemic 03/27/23 and was repleted with 10 MEQ IV x 3 bags. On post operative day one she was deemed stable for discharge and was given verbal and written return precautions and follow up instructions. She was sent a prescription for narcotic pain medication and ordered an abdominal binder to wear for comfort. Total Time Total Time Spent Total Time Spent (In Minutes): 30 Discharge Plan Discharge Items Patient Disposition: Home - Self-Care Reason For Visit: INCARCERATED VENTRAL HERNIA Discharge Diagnosis: Incarcerated ventral hernia Activity: As commented below Lifting: No more than 10 pounds Bathing Comment: you can shower. No pools or baths for 2 weeks Exercise/Sports: Wait until after follow-up appointment Driving/Machine Use: no driving while taking narcotic pain medication Non-emergency contact: Surgeon Call non-emergency contact if: you have any medication questions, your symptoms worsen, your pain is unusual for you, your temperature is above 101, your wound has increased redness, your wound has increased drainage and your wound pain has increased Follow-up/Referrals: Tolu Velez DO [Physician] - 04/08/23 9:15 am (call office for a follow up in 2 weeks ) Lito Colon MD [Primary Care Provider] - Diet: Regular Addtl Attending Provider Instructions: You may remove your outer surgical dressing on 03/29/23. You will have small white bandages on underneath that are over your incision. You may shower with these on. They will tend to fall off on their own in a 7-10 days. You may purchase Tylenol and/or Ibuprofen over the counter if needed for additional pain control over the next few days. Take per manufacturers instructions. Do Not take more than 3 grams of Tylenol in 24 hours. wear your abdominal binder throughout the day for comfort Pending Studies at Discharge: No Stand-Alone Forms: My Call Loop, Smoking Cessation Medications and DC Order Prescriptions: New oxycodone 5 mg tablet 5 - 10 mg PO .[id number] MDD no more than 6 tabs in 24hours PRN (Reason: pain) Qty: 15 0RF Rx Instructions: Take one to two tablets by mouth every 4-6 hours, as needed for pain. Continued pantoprazole 40 mg tablet,delayed release (DR/EC) 40 mg PO DAILY Discharge Orders: Discharge Order (Routine); Ordered 03/28/23 Ordered By: Franklyn Márquez Admission Data Admit Date/Time: 03/27/23 18:05 Attending Provider: Tolu Velez Admit Provider: Tolu Velez Primary Care Provider: Lito Colon Other Providers: Tolu Velez Coding Level of Care Code 90460 OBS Care - Discharge Diagnoses Incarcerated ventral hernia K43.6
== END 2023-03-28 12:53 | disposition home or self-care (01) ==
LOC: ED 12:23 → 3E 16:20 → OR 16:20